=== PATIENT | female | born 1960 | race Two or more races ===

== ENCOUNTER 2018-11-13 15:02 | Emergency (ER) | payer MEDICARE ==
--- NOTE | 2018-11-13 16:08 | ER Document Report ---
ED Medical Screen (RME) - General Chief Complaint: Leg Pain Stated Complaint: LEG PAIN Time Seen by Provider: 11/13/18 16:04 Mode of Arrival: Ambulatory Information source: Patient TRAVEL OUTSIDE OF THE [place] IN LAST 30 DAYS: No - HPI Patient complains to provider of: Left lower extremity pain and swelling Notes: 11/13/18 16:07 Patient is a 58-year-old female sent to the emergency room by urgent care for complaints of pain and swelling to her left lower extremity with a pins and needle sensation as well, history of multiple strokes however only taking daily aspirin secondary to allergic reaction to Xarelto 11/13/18 16:07 RAPID MEDICAL EVALUATION DISCLOSURE I have seen this patient as part of a Rapid Medical Evaluation and, if applicable, placed any initially appropriate orders. The patient will be seen and fully evaluated, including a full history and physical exam, by a provider (in Main ED or Fast Track) when a room becomes available. - Related Data Allergies/Adverse Reactions: acetaminophen [From [place]] Allergy (Verified 11/13/18 15:11) hydrocodone [From [place]] Allergy (Verified 11/13/18 15:11) Penicillins Allergy (Verified 11/13/18 15:11) rivaroxaban [From Xarelto] Allergy (Verified 11/13/18 15:11) Sulfa (Sulfonamide Antibiotics) Allergy (Verified 11/13/18 15:11) Physical Exam - Vital signs Vitals: Temp Pulse Resp BP Pulse Ox 97.5 F 70 17 145/90 H 97 11/13/18 15:18 11/13/18 15:18 11/13/18 15:18 11/13/18 15:18 11/13/18 15:18 Course - Vital Signs Vital signs: Temp Pulse Resp BP Pulse Ox 97.5 F 70 17 145/90 H 97 11/13/18 15:18 11/13/18 15:18 11/13/18 15:18 11/13/18 15:18 11/13/18 15:18
--- NOTE | 2018-11-13 17:13 | ER Document Report ---
ED Extremity Problem, Lower - General Chief Complaint: Leg Pain Stated Complaint: LEG PAIN Time Seen by Provider: 11/13/18 16:04 Mode of Arrival: Ambulatory Information source: Patient TRAVEL OUTSIDE OF THE [place] IN LAST 30 DAYS: No - HPI Patient complains to provider of: Pain, Swelling Location: Leg Occurred: Last week Onset/Duration: Gradual Quality of pain: Achy, Fullness, Pressure Recent injury: No Associated symptoms: denies: Chest pain, Short of breath Exacerbated by: Movement, Walking Relieved by: Nothing Notes: Patient is a 58-year-old female sent to the emergency room by urgent care for complaints of pain and swelling to her left lower extremity with a pins and needle sensation as well, history of multiple strokes however only taking daily aspirin secondary to allergic reaction to Xarelto, patient denies low back pain, denies injury or fall - Related Data Allergies/Adverse Reactions: acetaminophen [From [place]] Allergy (Verified 11/13/18 15:11) hydrocodone [From [place]] Allergy (Verified 11/13/18 15:11) Penicillins Allergy (Verified 11/13/18 15:11) rivaroxaban [From Xarelto] Allergy (Verified 11/13/18 15:11) Sulfa (Sulfonamide Antibiotics) Allergy (Verified 11/13/18 15:11) Past Medical History - General Information source: Patient - Social History Smoking Status: Never Smoker Chew tobacco use (# tins/day): No Frequency of alcohol use: None Drug Abuse: None Family History: Reviewed & Not Pertinent Patient has suicidal ideation: No Patient has homicidal ideation: No Renal/ Medical History: Denies: Hx Peritoneal Dialysis Review of Systems - Review of Systems Constitutional: No symptoms reported EENT: No symptoms reported Cardiovascular: No symptoms reported Respiratory: No symptoms reported Gastrointestinal: No symptoms reported Genitourinary: No symptoms reported Female Genitourinary: No symptoms reported Musculoskeletal: See HPI Skin: No symptoms reported Hematologic/Lymphatic: No symptoms reported Neurological/Psychological: No symptoms reported -: Yes All other systems reviewed and negative Physical Exam - Vital signs Vitals: Temp Pulse Resp BP Pulse Ox 97.5 F 70 17 145/90 H 97 11/13/18 15:18 11/13/18 15:18 11/13/18 15:18 11/13/18 15:18 11/13/18 15:18 - Notes Notes: - General General appearance: Appears well, Alert In distress: None - HEENT Head: Normocephalic, Atraumatic Eyes: Normal Conjunctiva: Normal Extraocular movements intact: Yes Eyelashes: Normal Pupils: PERRL - Respiratory Respiratory status: No respiratory distress - Cardiovascular Rhythm: Regular - Abdominal Inspection: Normal - Back Back: Normal - Extremities General upper extremity: Normal inspection General lower extremity: Tenderness to palpate down the left lower extremity posteriorly, distal sensation and motor is intact - Neurological Neuro grossly intact: Yes Orientation: AAOx4 [place] Coma Scale Eye Opening: Spontaneous [place] Coma Scale Verbal: Oriented [place] Coma Scale Motor: Obeys Commands [place] Coma Scale Total: 15 - Psychological Associated symptoms: Normal affect, Normal mood - Skin Skin Temperature: Warm Skin Moisture: Dry Skin Color: Normal Course - Re-evaluation Re-evalutation: 11/13/18 20:19 Doppler of the left lower extremity negative for DVT, patient discharged with a prescription for a small amount of muscle relaxers and advised to follow-up with her primary care provider or return if symptoms worsen, patient acknowledges understanding and agreement with this plan - Vital Signs Vital signs: Temp Pulse Resp BP Pulse Ox 97 F L 68 16 155/78 H 100 11/13/18 17:20 11/13/18 17:20 11/13/18 17:20 11/13/18 17:20 11/13/18 17:20 - Diagnostic Test Radiology reviewed: Image reviewed, Reports reviewed Discharge - Discharge Clinical Impression: Leg pain Condition: Stable Disposition: HOME, SELF-CARE Instructions: Leg Pain Nonspecific ([facility]) Additional Instructions: Follow up with your primary care provider in one to 2 days. Return to the emergency room immediately if symptoms worsen or any additional concerns. Prescriptions: Cyclobenzaprine HCl [Flexeril 10 Mg Tablet] 10 mg PO TID #10 tablet
[2018-11-13 17:22] VITALS: BP 155/78
--- NOTE | 2018-11-13 17:32 | RADIOLOGY REPORT (SQ) ---
EXAM DESCRIPTION: VENOUS UNILATERAL LOWER COMPLETED DATE/TIME: 11/13/2018 5:18 pm REASON FOR STUDY: LLE pain, swelling COMPARISON: None. TECHNIQUE: Dynamic and static castellon scale and color images acquired of the left leg venous system. Se lected spectral images acquired with additional compression and augmentation maneuvers. The contralat eral common femoral vein and saphenofemoral junction were also imaged. Images stored on PACS. LIMITATIONS: None. FINDINGS: COMMON FEMORAL: Normal phasicity, compression and augmentation. No visualized echogenic ma terial on castellon scale. No defects on color images. FEMORAL: Normal compression and augmentation. No visualized echogenic material on castellon scale. No defe cts on color images. POPLITEAL: Normal compression, augmentation. No visualized echogenic material on castellon scale. No defec ts on color images. CALF VESSELS: Normal compression, augmentation. No visualized echogenic material on castellon scale. No de fects on color images. GSV and SSV: Normal compression, augmentation. No visualized echogenic material on castellon scale. No def ects on color images. ANY DEEP VENOUS INSUFFICIENCY: Not evaluated. ANY EVIDENCE OF POPLITEAL CYST: No. OTHER: No other significant finding. CONTRALATERAL COMMON FEMORAL VEIN AND SAPHENOFEMORAL JUNCTION: Normal phasicity, compression and augmentation. No visualized echogenic material on castellon scale. No de fects on color images. IMPRESSION: NO EVIDENCE OF DVT OR SVT IN THE LEFT LEG. TECHNICAL DOCUMENTATION: JOB ID: [id number] [employer]- All Rights Reserved Reading location - IP/workstation name: [email or web address]
== END 2018-11-13 17:26 | disposition home or self-care (01) ==
LOC: ER 15:02
DX: M79.605 Pain in left leg (principal); M79.89 Other specified soft tissue disorders; Z79.01 Long term (current) use of anticoagulants
CPT/HCPCS: 93971; 99283